=== PATIENT | male | born 1960 | race Caucasian/White ===

== ENCOUNTER 2017-12-07 08:08 | Emergency (ER) | payer BC, OTHER ==
[~2017-12-07] VITALS: Ht 182.9 cm; Wt 70.5 kg
[2017-12-07] MEDS ORDERED: MORPHINE SULFATE 4 MG/ML, 1ML ONE ×2 (08:45→09:49)
[2017-12-07] MEDS ORDERED: ONDANSETRON 2MG/ML, 2ML ONE (08:45)
[2017-12-07] MEDS: MORPHINE SULFATE 4 MG/ML, 1ML IVPush PRN ×2 (08:50→09:55)
[2017-12-07] MEDS ORDERED: ONDANSETRON 2MG/ML, 2ML IVPush ONE (09:00)
[2017-12-07 09:01] LABS: BASOPHILS # (AUTO) 0.03 x10^3/uL (0-0.1); BASOPHILS % (AUTO) 0 % (0-1); EOSINOPHILS # (AUTO) 0.03 x10^3/uL (0-0.4); EOSINOPHILS % (AUTO) 0 % (1-7); LYMPHOCYTES # (AUTO) 1.76 x10^3/uL (1-3.4); LYMPHOCYTES % (AUTO) 18 % (22-44); MD NO; MEAN CORPUSCULAR HEMOGLOBIN 31.8 pg (27.5-34.5); MEAN CORPUSCULAR HGB CONC 33.9 g/dL (33.2-36.2); MEAN CORPUSCULAR VOLUME 93.7 fL (81-97); MEAN PLATELET VOLUME 7.5 fL (7.4-10.4); MONOCYTES # (AUTO) 0.78 x10^3/uL (0.2-0.8); MONOCYTES % (AUTO) 8 % (2-9); NEUTROPHILS # (AUTO) 7.34 x10^3/uL (1.8-6.8); NEUTROPHILS % (AUTO) 74 % (42-75); PLATELET COUNT 270 x10^3/uL (130-400); RED BLOOD COUNT 5.51 x10^6/uL (4.38-5.82); RED CELL DISTRIBUTION WIDTH 12.6 % (9.4-14.8)
[2017-12-07 09:17] LABS: ALANINE AMINOTRANSFERASE 34 U/L (12-78); ALBUMIN 4.4 g/dL (3.4-5.0); CHLORIDE 85 mmol/L (98-107); CREATININE 1.09 mg/dL (0.7-1.3)
[2017-12-07 09:19] LABS: ALKALINE PHOSPHATASE 76 U/L (45-117); BILIRUBIN,TOTAL 1.2 mg/dL (0.2-1.0); TOTAL PROTEIN 7.6 g/dL (6.4-8.2)
[2017-12-07 09:31] LABS: ANION GAP 11 mmol/L (5-15)
[2017-12-07] MEDS ORDERED: SODIUM CHLORIDE 0.9% 1,000ML IVBOLUS ONE (10:00)
[2017-12-07] MEDS ORDERED: OMNIPAQUE 350 MG/ML, 100ML BOTTLE ONE (10:18)
[2017-12-07 12:00] VITALS: BP 131/91
[2017-12-07] MEDS ORDERED: DICYCLOMINE 10 MG/ML, 2ML IM ONE (12:00)
[2017-12-07] MEDS ORDERED: DICYCLOMINE 10 MG/ML, 2ML ONE (12:20)
== END 2017-12-07 12:42 | disposition home or self-care (01) ==
LOC: ED 10:40
DX: R10.84 Generalized abdominal pain (principal); R19.7 Diarrhea, unspecified
CPT/HCPCS: 36415; 74177; 80053; 83690; 85025; 96361; 96372; 96374; 96375; 96376; 99285; J0500; J2405; J7030; Q9967

== ENCOUNTER 2017-12-10 08:35 | Inpatient (IN) | payer BC ==
[~2017-12-10] VITALS: Ht 182.9 cm; Wt 70.2 kg
[2017-12-10] MEDS ORDERED: SODIUM CHLORIDE 0.9% 1,000 ML IV ONE ×2 (09:02→11:38)
[2017-12-10] MEDS ORDERED: MORPHINE SULFATE 4 MG/ML, 1ML IVPush PRN (09:30)
[2017-12-10] MEDS ORDERED: FAMOTIDINE 20 MG/2 ML IVP ONE (09:30)
[2017-12-10] MEDS ORDERED: ONDANSETRON 2MG/ML, 2ML IVPush ONE (09:30)
[2017-12-10] MEDS ORDERED: SODIUM CHLORIDE 0.9% 1,000ML IVBOLUS ONE ×2 (09:30→10:30)
[2017-12-10 09:31] LABS: MEAN CORPUSCULAR HEMOGLOBIN 31.7 pg (27.5-34.5); MEAN CORPUSCULAR HGB CONC 34.2 g/dL (33.2-36.2); MEAN CORPUSCULAR VOLUME 92.7 fL (81-97); MEAN PLATELET VOLUME 7.4 fL (7.4-10.4); PLATELET COUNT 254 x10^3/uL (130-400); RED BLOOD COUNT 4.67 x10^6/uL (4.38-5.82); RED CELL DISTRIBUTION WIDTH 12.4 % (9.4-14.8)
[2017-12-10 09:42] LABS: ALANINE AMINOTRANSFERASE 31 U/L (12-78); ALBUMIN 3.9 g/dL (3.4-5.0); ANION GAP 12 mmol/L (5-15); CALCIUM 8.8 mg/dL (8.5-10.1); CHLORIDE 79 mmol/L (98-107); CREATININE 0.83 mg/dL (0.7-1.3)
[2017-12-10 09:44] LABS: ALKALINE PHOSPHATASE 69 U/L (45-117); BILIRUBIN,TOTAL 0.9 mg/dL (0.2-1.0); TOTAL PROTEIN 6.7 g/dL (6.4-8.2)
[2017-12-10 09:50] LABS: BASOPHILS # (AUTO) 0.03 x10^3/uL (0-0.1); BASOPHILS % (AUTO) 0 % (0-1); EOSINOPHILS # (AUTO) 0.03 x10^3/uL (0-0.4); EOSINOPHILS % (AUTO) 0 % (1-7); LYMPHOCYTES # (AUTO) 1.38 x10^3/uL (1-3.4); LYMPHOCYTES % (AUTO) 11 % (22-44); MD SCAN; MONOCYTES # (AUTO) 0.71 x10^3/uL (0.2-0.8); MONOCYTES % (AUTO) 6 % (2-9); NEUTROPHILS # (AUTO) 10.41 x10^3/uL (1.8-6.8); NEUTROPHILS % (AUTO) 83 % (42-75)
[2017-12-10] MEDS ORDERED: FAMOTIDINE 20 MG/2 ML ONE (09:51)
[2017-12-10] MEDS ORDERED: ONDANSETRON 2MG/ML, 2ML ONE (09:51)
[2017-12-10] MEDS ORDERED: MORPHINE SULFATE 4 MG/ML, 1ML ONE (09:51)
[2017-12-10] MEDS ORDERED: SODIUM CHLORIDE FLUSH 10ML SYR IVF ONE ×2 (10:00→12:00)
[2017-12-10 10:13] LABS: MICROSCOPIC AUTO
[2017-12-10 10:14] LABS: CULTURE INDICATED? NO
[2017-12-10] MEDS ORDERED: PROMETHAZINE 25 MG/ML, 1ML IM PRN (12:30)
[2017-12-10] MEDS ORDERED: ONDANSETRON 2MG/ML, 2ML IVPush PRN (12:30)
[2017-12-10] MEDS ORDERED: ONDANSETRON ODT 4 MG PO PRN (12:30)
[2017-12-10 13:05] LABS: HEMOGLOBIN A1C 5.7 % (4.2-6.3)
[2017-12-10 13:29] VITALS: BP 108/69
[2017-12-10] MEDS: METOCLOPRAMIDE 5 MG/ML, 2ML IVPush SCH ×3 (13:46→20:16)
[2017-12-10] MEDS: NS + 20MEQ KCL 1,000 ML IV SCH (13:46)
[2017-12-10 14:25] VITALS: BP 103/60
[2017-12-10] MEDS: KETOROLAC 30 MG/1 ML IVPush PRN (17:37)
[2017-12-10 18:43] VITALS: BP 106/60
[2017-12-11] MEDS: KETOROLAC 30 MG/1 ML IVPush PRN ×2 (00:22→07:56)
[2017-12-11] MEDS: NS + 20MEQ KCL 1,000 ML IV SCH (00:23)
[2017-12-11] MEDS: METOCLOPRAMIDE 5 MG/ML, 2ML IVPush SCH ×6 (00:23→21:05)
[2017-12-11 00:27] VITALS: BP 150/81
[2017-12-11] MEDS ORDERED: MORPHINE SULFATE 4 MG/ML, 1ML IVPush ONE (03:30)
[2017-12-11 05:55] LABS: ANION GAP 8 mmol/L (5-15); CALCIUM 8.8 mg/dL (8.5-10.1); CHLORIDE 105 mmol/L (98-107)
[2017-12-11 05:56] LABS: BASOPHILS # (AUTO) 0.03 x10^3/uL (0-0.1); BASOPHILS % (AUTO) 0 % (0-1); EOSINOPHILS # (AUTO) 0.03 x10^3/uL (0-0.4); EOSINOPHILS % (AUTO) 0 % (1-7); LYMPHOCYTES # (AUTO) 1.29 x10^3/uL (1-3.4); LYMPHOCYTES % (AUTO) 17 % (22-44); MD NO; MEAN CORPUSCULAR HEMOGLOBIN 32.4 pg (27.5-34.5); MEAN CORPUSCULAR HGB CONC 34.3 g/dL (33.2-36.2); MEAN CORPUSCULAR VOLUME 94.7 fL (81-97); MEAN PLATELET VOLUME 7.4 fL (7.4-10.4); MONOCYTES # (AUTO) 0.64 x10^3/uL (0.2-0.8); MONOCYTES % (AUTO) 9 % (2-9); NEUTROPHILS # (AUTO) 5.51 x10^3/uL (1.8-6.8); NEUTROPHILS % (AUTO) 74 % (42-75); PLATELET COUNT 210 x10^3/uL (130-400); RED CELL DISTRIBUTION WIDTH 12.5 % (9.4-14.8)
[2017-12-11 06:00] LABS: CHOL/HDL RATIO 2.2; CHOLESTEROL, TOTAL 84 mg/dL (140-239); CREATININE 0.78 mg/dL (0.7-1.3); HDL CHOL % 46 % (26-37); HDL CHOLESTEROL (DIRECT) 39 mg/dL (40-60); LDL CHOLESTEROL,CALCULATED 36 mg/dL (54-169); LDL/HDL RATIO 0.9 (0.5-3.0); TRIGLYCERIDES 46 mg/dL (50-200); VLDL CHOLESTEROL 9 mg/dL (0-25)
[2017-12-11 07:29] VITALS: BP 125/78
[2017-12-11] MEDS: PANTOPRAZOLE 40 MG IV IVPush SCH (07:56)
[2017-12-11 13:08] VITALS: BP 121/77
[2017-12-11] MEDS ORDERED: MAALOX/HYOSCYAMINE/LIDOCAINE 45 ML BTL PO ONE (17:00)
[2017-12-11] MEDS: SUCRALFATE 1 GM/10 ML UDC PO SCH ×2 (17:39→21:05)
[2017-12-11 20:33] VITALS: BP 94/54
[2017-12-12 00:55] VITALS: BP 101/65
[2017-12-12] MEDS: METOCLOPRAMIDE 5 MG/ML, 2ML IVPush SCH ×2 (01:44→06:11)
[2017-12-12] MEDS: SUCRALFATE 1 GM/10 ML UDC PO SCH ×2 (07:11→10:02)
[2017-12-12 07:49] VITALS: BP 107/65
[2017-12-12] MEDS ORDERED: MAALOX/HYOSCYAMINE/LIDOCAINE 45 ML BTL PO PRN (08:00)
[2017-12-12] MEDS: SIMETHICONE 125 MG CHEW TAB PO SCH ×2 (08:29→10:02)
[2017-12-12] MEDS: PANTOPRAZOLE 40 MG IV IVPush SCH (08:29)
[2017-12-12] MEDS ORDERED: SUCR1ORA5 PO (08:43)
[2017-12-12] MEDS ORDERED: MAG355OR14 PO (09:02)
== END 2017-12-12 10:08 | disposition home or self-care (01) | DRG 392 ==
LOC: ED 09:08 → EDIP 11:38 → 3NE 12:30
PROVIDERS: ADMIT Hospitalist; ATTEND Hospitalist
DX: K29.70 Gastritis, unspecified, without bleeding (principal); E87.1 Hypo-osmolality and hyponatremia; K21.9 Gastro-esophageal reflux disease without esophagitis; F12.90 Cannabis use, unspecified, uncomplicated; E86.0 Dehydration; D72.829 Elevated white blood cell count, unspecified; E87.6 Hypokalemia; Z79.899 Other long term (current) drug therapy
CPT/HCPCS: 36415; 74021; 99285; S0028; 74177; 78264; 80048; 80053; 80061; 81001; 83036; 83605; 83690; 83735; 84100; 85018; 85025; 90656; 96361; 96374; 96375; G0378; J1885; J2405; J3480; A9541; C9113; C9898; J2765; J7030

== ENCOUNTER 2018-06-26 10:00 | Emergency (ER) | payer BC ==
[~2018-06-26] VITALS: Ht 182.9 cm; Wt 67.2 kg
[~2018-06-26 10:00] MED LIST: MAG355OR14 PO; SUCR1ORA5 PO
[2018-06-26] MEDS ORDERED: SODIUM CHLORIDE 0.9% 1,000 ML IV ONE (10:31)
[2018-06-26] MEDS ORDERED: MAALOX/HYOSCYAMINE/LIDOCAINE 45 ML BTL ONE (10:33)
[2018-06-26] MEDS ORDERED: PANTOPRAZOLE 40 MG IV ONE (10:34)
[2018-06-26 10:51] LABS: MEAN CORPUSCULAR HEMOGLOBIN 32.2 pg (27.5-34.5); MEAN CORPUSCULAR HGB CONC 33.6 g/dL (33.2-36.2); MEAN CORPUSCULAR VOLUME 95.8 fL (81-97); PLATELET COUNT 231 x10^3/uL (130-400); RED BLOOD COUNT 5.52 x10^6/uL (4.38-5.82); RED CELL DISTRIBUTION WIDTH 13.9 % (9.4-14.8)
[2018-06-26] MEDS ORDERED: SODIUM CHLORIDE 0.9% 1,000ML IVBOLUS ONE (11:00)
[2018-06-26] MEDS ORDERED: MAALOX/HYOSCYAMINE/LIDOCAINE 45 ML BTL PO ONE (11:00)
[2018-06-26] MEDS ORDERED: SODIUM CHLORIDE FLUSH 10ML SYR IVF ONE (11:00)
[2018-06-26] MEDS ORDERED: PANTOPRAZOLE 40 MG IV IVPush ONE (11:00)
[2018-06-26 11:02] LABS: ALANINE AMINOTRANSFERASE 32 U/L (12-78); ALBUMIN 4.6 g/dL (3.4-5.0); ANION GAP 13 mmol/L (5-15); CALCIUM 9.7 mg/dL (8.5-10.1); CHLORIDE 92 mmol/L (98-107); CREATININE 0.95 mg/dL (0.7-1.3)
[2018-06-26 11:07] LABS: ALKALINE PHOSPHATASE 73 U/L (45-117); BILIRUBIN,TOTAL 1.3 mg/dL (0.2-1.0); TOTAL PROTEIN 7.7 g/dL (6.4-8.2); TROPONIN I 0.041 ng/mL (0.000-0.045)
--- NOTE | 2018-06-26 11:43 | NUR ---
LATE NOTE ENTRY FOR 1025: FIRST CONTACT WITH PT. Pt resting over gurey horizontal on abdomen with spouse rubbing his back. Pt states, "I have been vomiting and having loose stools for the last two days. I can feel the stomach acid burning. I have gastric ulcers, I never had antibiotics for it. I have drank 3 gallons of aloe vera juice and cabbage juice yesterday. I havn't been able to eat or drink anything else. I last drank the juices last night. My pain is a 10/10 right here (left upper quadrant and epigastric)." Pt connected to NIBP, continous pulse ox, and registered nurse cardiac telemetry. Call light within reach. Both bed rails up for safety measures. PIV started and labs collected. Medication provided per EMAR. Pt states, "my pain is a 4 now", status post GI cocktail. PIV fluids infusing per EMAR. No other needs expressed at this time. Ultrasound at bedside.
[2018-06-26 11:46] LABS: BASOPHILS # (AUTO) 0.03 x10^3/uL (0-0.1); BASOPHILS % (AUTO) 0 % (0-1); EOSINOPHILS # (AUTO) 0.01 x10^3/uL (0-0.4); EOSINOPHILS % (AUTO) 0 % (1-7); LYMPHOCYTES # (AUTO) 1.17 x10^3/uL (1-3.4); LYMPHOCYTES % (AUTO) 6 % (22-44); MD SCAN; MONOCYTES # (AUTO) 0.77 x10^3/uL (0.2-0.8); MONOCYTES % (AUTO) 4 % (2-9); NEUTROPHILS # (AUTO) 16.58 x10^3/uL (1.8-6.8); NEUTROPHILS % (AUTO) 89 % (42-75)
--- NOTE | 2018-06-26 11:46 | NUR ---
LATE NOTE ENTRY FOR 1125: Pt back to room from imaging. NADN. No needs expressed.
--- NOTE | 2018-06-26 11:46 | NUR ---
LATE NOTE ENTRY FOR 1050: Pt transported on gurney to [facility]. Both bedrails up for safety measures. Call light within reach. NADN. No other needs expressed.
--- NOTE | 2018-06-26 11:47 | NUR ---
[facility] No needs expressed at this time. Both bedrails up for safety measures.
[2018-06-26] MEDS ORDERED: ALUMINUM/MAG/SIMETHICONE 30 ML UDC ONE (12:59)
[2018-06-26] MEDS ORDERED: ALUMINUM/MAG/SIMETHICONE 30 ML UDC PO ONE (13:00)
[2018-06-26 13:02] VITALS: BP 105/72
--- NOTE | 2018-06-26 13:09 | NUR ---
LUNCH RN: PT MEDICATED PER APR. VSS. AWAITING DISPO AT THIS TIME. CALL LIGHT WITHIN REACH
== END 2018-06-26 13:28 | disposition home or self-care (01) ==
LOC: ED 11:34
DX: K27.7 Chronic peptic ulcer, site unspecified, without hemorrhage or perforation (principal); K52.9 Noninfective gastroenteritis and colitis, unspecified
CPT/HCPCS: 36415; 74022; 74177; 76700; 80053; 83690; 84484; 85025; 93005; 96361; 96374; 99284; C9113; J7030